=== PATIENT | male | born 1980 | race Caucasian/White ===

== ENCOUNTER 2017-10-06 05:11 | Emergency (ER) | payer OTHER ==
--- NOTE | 2017-10-06 05:26 | C.PDOC ---
History Of Present Illness <Mine Landry - Last Filed: 10/06/17 06:33> <Stephanie Wilder - Last Filed: 10/06/17 17:28> 37 year old male with unknown PMHx found by police on the street reportedly under the influence of an unknown substance. On arrival patient is combative and nonverbal, immediately place in 4 point restraints. Patient continued to be nonverbal until attempts were made to collect urine, at that time patient became verbally abusive. While in the ER patient began having visual hallucinations, he was searched and found to have large quantities of edward on his person but no drug evidence uncovered. No further Hx available. (Mine Landry) History Per: Patient History/Exam Limitations: no limitations Onset/Duration Of Symptoms: Hrs Current Symptoms Are (Timing): Still Present Suicide/Self Injury Attempted (Context): None Modifying Factor(s): Other (Unknown substance) Associated Symptoms: Anger, Agitation. denies: Depression, Suicidal Thoughts, Suicidal Plan Involuntary Hold By: None Recent travel outside of the [place]: No <Mine Landry - Last Filed: 10/06/17 06:33> <Stephanie Wilder - Last Filed: 10/06/17 17:28> Time Seen by Provider: 10/06/17 05:26 Past Medical History Reviewed: Historical Data, Nursing Documentation, Vital Signs - Medical History PMH: No Chronic Diseases Surgical History: No Surg Hx Family History: States: Unknown Family Hx - Social History Hx Alcohol Use: (unknown) Hx Substance Use: Yes <Mine Landry - Last Filed: 10/06/17 06:33> Vital Signs: Last Vital Signs Temp 97.8 F 10/06/17 16:00 Pulse 88 10/06/17 16:00 Resp 20 10/06/17 16:00 BP 126/83 10/06/17 16:00 Pulse Ox 97 10/06/17 16:00 Review Of Systems Review Of Systems: ROS cannot be obtained secondary to pt's inabilty to answer questions. <Mine Landry - Last Filed: 10/06/17 06:33> Physical Exam - Physical Exam Appears: Non-toxic, Combative, Agitated, Other (Verbally abusive, alert) Skin: Normal Color, Warm, Dry, Other (No external evidence of IV drug abuse) Head: Atraumatic, Normacephalic Eye(s): bilateral: Normal Inspection, PERRL (Mid sized, reactive), EOMI, Other Nose: Normal Oral Mucosa: Dry Chest: Symmetrical Cardiovascular: Rhythm Regular (S1 and S2 within normal limits) Respiratory: Normal Breath Sounds, No Rales, No Rhonchi, No Wheezing Gastrointestinal/Abdominal: Soft, No Tenderness Extremity: Other (Moves all extremities) Neurological/Psych: Normal Cranial Nerves (No obvious abnormalities) <Mine Landry - Last Filed: 10/06/17 06:33> ED Course And Treatment - Laboratory Results Result Diagrams: 10/06/17 05:56 10/06/17 05:56 <Mine Landry - Last Filed: 10/06/17 06:33> - Laboratory Results Result Diagrams: 10/06/17 05:56 10/06/17 05:56 <Stephanie Wilder - Last Filed: 10/06/17 17:28> Progress <Mine Landry - Last Filed: 10/06/17 06:33> - Data Reviewed Data Reviewed: Lab <Stephanie Wilder - Last Filed: 10/06/17 17:28> - Re-Evaluation Re-evaluation Note: 10/06/17 15:56 PERSIST MILD INTOX. CALM COOPERATIVE. 10/06/17 17:25 PT W CLEAR SPEECH AND THOUGHT, STEADY GAIT. NO S/S ACUTE INTOXICATION. PT MED CLEAR FOR DC. (Stephanie Wilder) Medical Decision Making <Mine Landry - Last Filed: 10/06/17 06:33> <Stephanie Wilder - Last Filed: 10/06/17 17:28> Medical Decision Making: Impression: Polysubstance abuse, agitated state. Plan: * Blood work * Ativan * Haldol (Mine Landry) Disposition <Mine Landry - Last Filed: 10/06/17 06:33> Counseled Patient/Family Regarding: Studies Performed, Diagnosis - Disposition Disposition Time: 18:30 <Stephanie Wilder - Last Filed: 10/06/17 17:28> - Disposition Disposition: HOME/ ROUTINE Condition: IMPROVED Instructions: Polysubstance Abuse (ED) Forms: [employer] (Yakut) - Clinical Impression Clinical Impression: PCP intoxication - Scribe Statement The provider has reviewed the documentation as recorded by the Scribe <Mine Landry - Last Filed: 10/06/17 06:33> <Stephanie Wilder - Last Filed: 10/06/17 17:28> - Pamela Mcnamara All medical record entries made by the Pamela were at my direction and personally dictated by me. I have reviewed the chart and agree that the record accurately reflects my personal performance of the history, physical exam, medical decision making, and the department course for this patient. I have also personally directed, reviewed, and agree with the discharge instructions and disposition. (Mine Landry)
[2017-10-06 06:00] LABS: BASO % 0.4 % (0.0-2.0); EOS # 0.1 K/uL (0.0-0.7); EOS % 0.6 % (0.0-4.0); HEMATOCRIT 47.6 % (35.0-51.0); LYMPH # 2.3 K/uL (1.0-4.3); LYMPH % 18.9 % (20.0-40.0); MEAN CELL VOLUME 85.4 fL (80.0-94.0); MEAN CORPUSCULAR HEMOGLOBIN 28.3 pg (27.0-31.0); MEAN CORPUSCULAR HGB CONC 33.1 g/dL (33.0-37.0); MEAN PLATELET VOLUME 9.2 fL (7.2-11.7); MONO # 0.9 K/uL (0.0-0.8); MONO % 7.4 % (0.0-10.0); RED CELL DISTRIBUTION WIDTH 12.8 % (11.5-14.5); WHITE BLOOD COUNT 12.3 K/uL (4.8-10.8)
[2017-10-06 06:04] LABS: CHLORIDE 101 mmol/L (98-107)
[2017-10-06 06:05] LABS: POTASSIUM 3.5 mmol/L (3.6-5.2); SODIUM 139 mmol/L (132-148)
[2017-10-06 06:07] LABS: ALB/GLOB RATIO 1.2 (1.0-2.1); ALKALINE PHOSPHATASE 87 U/L (38-126); ALT/SGPT 71 U/L (21-72); AST/SGOT 67 U/L (17-59); BILIRUBIN,TOTAL 0.5 mg/dL (0.2-1.3); BLOOD UREA NITROGEN 15 mg/dL (9-20); CARBON DIOXIDE 21 mmol/L (22-30); GFR AFRICAN-AMERICAN > 60; GLUCOSE,RANDOM 126 mg/dL (75-110); TOTAL PROTEIN 8.7 g/dL (6.3-8.3)
[2017-10-06 06:08] LABS: ALCOHOL SERUM < 10 mg/dl (0-10); CALCIUM 9.2 mg/dl (8.6-10.4)
[2017-10-06 19:21] VITALS: BP 129/66; PULSE 79; RESP 19; TEMP 98.8; O2SAT 99
[2017-10-10 08:45] LABS: ACETONE None Detected; ETHANOL None Detected; METHANOL None Detected
== END 2017-10-06 19:43 | disposition home or self-care (01) ==
LOC: C.ER 05:11
DX: F16.129 Hallucinogen abuse with intoxication, unspecified (principal)
CPT/HCPCS: 80053; 80320; 80324; 80345; 80346; 80349; 80353; 80358; 80361; 82009; 83992; 84600; 85025; 96372; 99285; J0780; J1630; J2060

== ENCOUNTER 2017-10-09 15:25 | Emergency (ER) | payer OTHER ==
[2017-10-09 15:34] VITALS: BP 107/76; PULSE 65; RESP 18; TEMP 98.1; O2SAT 99
--- NOTE | 2017-10-09 16:16 | C.PDOC ---
History Of Present Illness 37 year old male, with history of homelessness and alcohol abuse, is brought to the ED by EMS for evaluation of depression. Patient denies suicidal/homicidal ideation at this time. Time Seen by Provider: 10/09/17 16:00 Chief Complaint (Nursing): Medical Clearance History Per: Patient, EMS History/Exam Limitations: no limitations Onset/Duration Of Symptoms: Hrs Current Symptoms Are (Timing): Still Present Additional History Per: Patient Past Medical History Reviewed: Historical Data, Nursing Documentation, Vital Signs Vital Signs: Last Vital Signs Temp 98.1 F 10/09/17 15:29 Pulse 65 10/09/17 15:29 Resp 18 10/09/17 15:29 BP 107/76 10/09/17 15:29 Pulse Ox 99 10/09/17 22:04 - Medical History PMH: No Chronic Diseases Surgical History: No Surg Hx Family History: States: Unknown Family Hx - Social History Hx Alcohol Use: (unknown) Hx Substance Use: Yes - Immunization History Hx Tetanus Toxoid Vaccination: No Hx Influenza Vaccination: No Hx Pneumococcal Vaccination: No Review Of Systems Psych: Positive for: Depression. Negative for: Suicidal ideation Physical Exam - Physical Exam Appears: Non-toxic, No Acute Distress Skin: Normal Color, Warm, Dry Head: Atraumatic, Normacephalic Eye(s): bilateral: Normal Inspection Oral Mucosa: Moist, Other (alcohol on breath ) Neck: Supple Chest: Symmetrical, No Deformity, No Tenderness Cardiovascular: Rhythm Regular, No Murmur Respiratory: Normal Breath Sounds, No Rales, No Rhonchi, No Wheezing Extremity: Normal ROM, Capillary Refill (less than 2 seconds ) Neurological/Psych: Other (flat affect) Gait: Steady ED Course And Treatment O2 Sat by Pulse Oximetry: 99 (RA) Pulse Ox Interpretation: Normal Progress Note: Blood work and labs were ordered. homeless/ alcohol abuse. no acute psych issues per Crisis eval, ok to d/c with Alf offerings. Disposition Doctor Will See Patient In The: Office Counseled Patient/Family Regarding: Studies Performed, Diagnosis - Disposition Referrals: Alcoholics Anonymous [Outside] [facility] [Outside[facility]] Disposition: HOME/ ROUTINE Disposition Time: 16:19 Condition: GOOD Additional Instructions: seek assistance for alcohol use as needed Nightly Alf placement as suggested. Instructions: Abuse of Alcohol (ED) Forms: [email or web address] (Burundian) - Clinical Impression Clinical Impression: Alcohol abuse, Homeless - Scribe Statement The provider has reviewed the documentation as recorded by the Scribe (Deja Delgado) Provider Attestation: All medical record entries made by the Scribe were at my direction and personally dictated by me. I have reviewed the chart and agree that the record accurately reflects my personal performance of the history, physical exam, medical decision making, and the department course for this patient. I have also personally directed, reviewed, and agree with the discharge instructions and disposition.
== END 2017-10-09 16:30 | disposition home or self-care (01) ==
LOC: C.ER 15:25
DX: F10.10 Alcohol abuse, uncomplicated (principal); Y90.9 Presence of alcohol in blood, level not specified; Z59.0 Homelessness